=== PATIENT | male | born 2005 | race Two or more races ===

== ENCOUNTER 2024-09-06 18:27 | Emergency (ER) | payer MEDICAID ==
[~2024-09-06] VITALS: Ht 180.3 cm; Wt 84.8 kg
[2024-09-06 20:40] VITALS: TEMP 98.1
[2024-09-06 21:29] LABS: BASOPHILS % (AUTO) 0.6 % (0.0-2.0); EOSINOPHILS # (AUTO) 0.3 K/uL (0.0-0.7); EOSINOPHILS % (AUTO) 3.6 % (0.0-6.0); HEMATOCRIT 43 % (39-51); HEMOGLOBIN 14.7 g/dL (13.5-17.5); LYMPHOCYTES # (AUTO) 2.7 K/uL (0.8-4.8); LYMPHOCYTES % (AUTO) 32.6 % (20.0-44.0); MEAN CORPUSCULAR HEMOGLOBIN 29 PG (26.0-33.0); MEAN CORPUSCULAR HGB CONC 34 g/dl (31.0-36.0); MEAN CORPUSCULAR VOLUME 84 fL (80-96); MONOCYTES # (AUTO) 0.7 K/uL (0.1-1.30); MONOCYTES % (AUTO) 8.9 % (2.0-12.0); NEUTROPHILS # (AUTO) 4.4 K/uL (1.8-8.9); NEUTROPHILS % (AUTO) 54.3 % (43.0-81.0); PLATELET COUNT (AUTO) 203 K/uL (150-450); RED BLOOD CELL COUNT(AUTO) 5.11 MIL/uL (4.5-6.0); RED CELL DISTRIBUTION WIDTH 13.4 % (11.5-15.0); WHITE BLOOD COUNT (AUTO) 8.2 K/uL (4.3-11.0)
[2024-09-06] MEDS ORDERED: IOHEXOL-300 100 ML VIAL IV ONE (21:35)
[2024-09-06] MEDS ORDERED: IV NS 0.9% 500 ML IV ONE (21:35)
[2024-09-06 21:41] LABS: ALBUMIN 3.9 g/dL (3.4-5.0); BILIRUBIN,DIRECT 0.1 mg/dL (0.0-0.2); BILIRUBIN,TOTAL 0.8 mg/dL (0.2-1.0); CALCIUM, SERUM 9.1 mg/dL (8.5-10.1); CREATININE 1.1 mg/dL (0.6-1.3); POTASSIUM 3.9 mmol/L (3.5-5.1); TOTAL PROTEIN, SERUM 6.8 g/dL (6.4-8.2)
[2024-09-06] MEDS ORDERED: KETO10TA2 PO (22:09)
[2024-09-06] MEDS ORDERED: PANT40TA49 PO (22:09)
[2024-09-06 22:43] VITALS: BP 116/70; O2SAT 99
== END 2024-09-06 22:43 | disposition home or self-care (01) ==
LOC: ER 18:38
DX: R10.31 Right lower quadrant pain (principal)
CPT/HCPCS: 99285; 74177; 85025; 80048; 83690; 80076; 36415; J7040; Q9967